=== PATIENT | male | born 1985 | race Caucasian/White ===

== ENCOUNTER 2018-05-18 11:54 | Emergency (ER) | payer SELFPAY, OTHER ==
[2018-05-18] MEDS: DEXAMETHASONE 10 MG/ML 1 ML INJ IM (15:23)
[2018-05-18] MEDS: DIPHENHYDRAMINE 50 MG CAP PO (15:24)
[2018-05-18] MEDS: KETOROLAC 60 MG INJ IM (15:24)
[2018-05-18] MEDS: METHYLPREDNISOLONE ACET 40 MG/ML 1 ML IM (15:49)
[2018-05-18] MEDS: METHYLPREDNISOLONE ACET 80 MG/ML 1 ML IM (16:28)
== END 2018-05-18 16:29 | disposition home or self-care (01) ==
LOC: FTE 11:54
DX: R51 Headache (principal)
CPT/HCPCS: 96372; 99284-25